=== PATIENT | female | born 1970 | race Caucasian/White ===

== ENCOUNTER 2020-09-28 08:50 | Outpatient (CLI) | payer BC, SELFPAY ==
--- NOTE | ~2020-09-28 | US_ITS ---
US abdomen complete DATE: 09/28/2020 09:56 INDICATION: Left upper quadrant abdominal pain TECHNIQUE: Real-time imaging and Doppler analysis of the abdomen COMPARISON: None FINDINGS: The abdominal aorta is of normal caliber. Patent inferior vena cava. No hepatic or pancreatic space-occupying mass lesion is evident. Normal hepatopedal portal venous quin[place] w direction. No gallstones, gallbladder wall thickening or abnormal pericholecystic fluid collection. The common b ile duct measures 3.3 mm, normal. Right kidney measures 10.8 cm per left kidney measures 9.6 cm. No renal mass lesion or hydronephrosis is evident. Normal splenic size. IMPRESSION: No significant abnormality Reviewed, dictated and finalized at [facility]. Reviewed, dictated and finalized at [facility]. IMPRESSION: No significant abnormality
== END 2020-09-28 08:51 | disposition home or self-care (01) ==
PROVIDERS: PCP Internal Medicine; Visit Provider Nurse Practitioner
DX: R10.12 Left upper quadrant pain (principal)
CPT/HCPCS: 76700

== ENCOUNTER → 2023-04-29 13:49 | Outpatient (CLI) | payer OTHER, SELFPAY ==
--- NOTE | ~2023-04-29 | US_ITS ---
EXAMINATION: US pelvic complete DATE: 04/29/2023 14:11 INDICATION: Pelvic and perineal pain TECHNIQUE: Multiple transabdominal sonographic images of the pelvis were obtained. COMPARISON: None. FINDINGS: The uterus measures 9.9 x 6.7 x 5.1 cm. There is a 5.1 cm intramural fibroid. The endometri al complex measures 4 mm. The right ovary measures 2.2 x 2.0 x 2.6 cm. The left ovary measures 3.3 x 3.1 x 1.7 cm. There is normal vascular flow in the ovaries. There is no free fluid in the pelvis. IMPRESSION: 1. No sonographic correlate for the patient's symptoms. Reviewed, dictated and finalized at [facility]. EO OPERATOR
== END ==
PROVIDERS: PCP Internal Medicine
DX: R10.2 Pelvic and perineal pain (principal)
CPT/HCPCS: 76856